=== PATIENT | male | born 1940 | race Caucasian/White ===

== ENCOUNTER 2022-01-19 10:46 | Emergency (ER) | payer OTHER ==
[~2022-01-19] VITALS: Ht 177.8 cm; Wt 90.7 kg
[~2022-01-19 10:46] MED LIST: ASPI-12 PO; CA C1TAB95 PO; ERGO2000 PO; FEXO-263 PO; MULT-1203 PO; OMEG-98 PO; SIMV80TA91 PO; [UNRECOGNIZED DRUG - CODE] PO
[2022-01-19 11:21] LABS: BASOPHILS % (AUTO) 0.6 % (0.0-5.0); EOSINOPHILS % (AUTO) 1.4 % (0.0-8.0); HEMATOCRIT 38.1 % (42-54); LYMPHOCYTES % (AUTO) 35.9 % (21.0-51.0); MEAN CORPUSCULAR HEMOGLOBIN 28.7 pg (27.0-33.0); MEAN CORPUSCULAR HGB CONC 34.9 g/dL (32.0-36.0); MEAN CORPUSCULAR VOLUME 82.1 fL (79-99); MONOCYTES % (AUTO) 7.3 % (3.0-13.0); NEUTROPHILS % (AUTO) 54.5 % (40.0-77.0); PLATELET COUNT (AUTO) 224 K/uL (130-400); RED BLOOD CELL COUNT(AUTO) 4.64 MIL/uL (4.50-6.20); RED CELL DISTRIBUTION WIDTH 13.1 % (11.0-15.5)
[2022-01-19 11:36] LABS: CREATININE 1.6 mg/dL (0.5-1.5); POTASSIUM 3.4 mmol/L (3.5-5.1)
[2022-01-19 11:41] LABS: ALBUMIN 3.7 g/dL (3.5-5.0); BILIRUBIN,TOTAL 0.6 mg/dL (0.2-1.0); TOTAL PROTEIN, SERUM 6.9 g/dL (6.0-8.3)
[2022-01-19 11:43] LABS: B-TYPE NATRIURETIC PEPTIDE 51 pg/mL (0-100)
[2022-01-19] MEDS ORDERED: IOHEXOL 350 MG/ML 100ML INFUS..BTL IV ONE (13:47)
[2022-01-19] MEDS ORDERED: 0.9%NACL 1000ML 1,000 ML IV ONE (14:30)
[2022-01-19 15:16] LABS: APPEARANCE,URINE Clear (CLEAR); BILIRUBIN,URINE Negative (NEGATIVE); COLOR,URINE Yellow (YELLOW); GLUCOSE, URINE (UA) Negative (NEGATIVE); KETONES,URINE Negative (NEGATIVE); LEUKOCYTE ESTERASE ,URINE Negative (NEGATIVE); NITRATE,URINE Negative (NEGATIVE); OCCULT BLOOD,URINE Negative (NEGATIVE); PROTEIN,URINE Negative (NEGATIVE)
[2022-01-19 15:22] LABS: AMPHET/METH SCREEN,URINE NEGATIVE (NEGATIVE); BARBITURATE SCREEN, URINE NEGATIVE (NEGATIVE); BENZODIAZEPINES SCREEN,URINE NEGATIVE (NEGATIVE); CANNABINOID SCREEN,URINE NEGATIVE (NEGATIVE); COCAINE SCREEN,URINE NEGATIVE (NEGATIVE); OPIATE SCREEN,URINE NEGATIVE (NEGATIVE); PHENCYCLIDINE SCREEN,URINE NEGATIVE (NEGATIVE)
[2022-01-19 15:26] LABS: BACTERIA,URINE None Seen /HPF (None Seen); RBC,URINE None Seen /HPF (0-1); SQUAMOUS EPITHELIAL CELL,UR None Seen /HPF (0-2); WBC,URINE None Seen /HPF (0-1)
[2022-01-19 15:32] VITALS: BP 147/47
== END 2022-01-19 16:44 | disposition home or self-care (01) ==
LOC: EDH 10:46
DX: E86.0 Dehydration (principal); R55 Syncope and collapse; G47.00 Insomnia, unspecified; E78.00 Pure hypercholesterolemia, unspecified; I10 Essential (primary) hypertension; Z79.82 Long term (current) use of aspirin; Z79.899 Other long term (current) drug therapy; Z88.0 Allergy status to penicillin
CPT/HCPCS: 36415; 70450; 71270; 80053; 80305; 81001; 83880; 84484; 85025; 85378; 93005; 96360; 99285; J7030; Q9967

== ENCOUNTER → 2022-03-19 | Outpatient (CLI) | payer OTHER | END | disposition home or self-care (01) | LOC: SLP 20:27 | PROVIDERS: ATTEND Family Medicine | DX: G47.33 Obstructive sleep apnea (adult) (pediatric) (principal) | CPT/HCPCS: 95811 ==

== ENCOUNTER 2022-12-13 05:50 | Day surgery (SDC) | payer OTHER ==
[2022-12-11 10:51] LABS: BASOPHILS % (AUTO) 0.5 % (0.0-5.0); EOSINOPHILS % (AUTO) 2.6 % (0.0-8.0); HEMATOCRIT 38.8 % (42-54); LYMPHOCYTES % (AUTO) 39.2 % (21.0-51.0); MEAN CORPUSCULAR HEMOGLOBIN 28.8 pg (27.0-33.0); MEAN CORPUSCULAR HGB CONC 34.8 g/dL (32.0-36.0); MEAN CORPUSCULAR VOLUME 82.7 fL (79-99); MONOCYTES % (AUTO) 8.2 % (3.0-13.0); NEUTROPHILS % (AUTO) 49.2 % (40.0-77.0); PLATELET COUNT (AUTO) 202 K/uL (130-400); RED BLOOD CELL COUNT(AUTO) 4.69 MIL/uL (4.50-6.20); RED CELL DISTRIBUTION WIDTH 12.7 % (11.0-15.5); WHITE BLOOD COUNT (AUTO) 7.7 K/uL (4.8-10.8)
[2022-12-11 11:54] LABS: CREATININE 1.1 mg/dL (0.5-1.5); POTASSIUM 3.9 mmol/L (3.5-5.1)
[2022-12-11 11:55] LABS: PROTHROMBIN TIME 10.9 SEC (9.6-11.6)
[2022-12-11 11:56] LABS: PARTIAL THROMBOPLASTIN TIME 30.7 SEC (26.3-35.5)
[2022-12-13] VITALS (11 sets, daily range): BP systolic 121–157; BP diastolic 56–73
[~2022-12-13 05:50] MED LIST changes: +ATOR40TA71 PO; -CA C1TAB95 PO; +KETO5DRO40 OU; +LOSA1TAB37 PO; +LUTIN PO; -SIMV80TA91 PO; +prevagen PO; +vitamin b PO
[2022-12-13] MEDS ORDERED: LACTATED RINGERS 1000ML 1,000 ML IV ONE (06:27)
[2022-12-13] MEDS ORDERED: SUCCINYLCHOLINE CHLORIDE 20 MG/ML 10 ML VIAL ONE (07:00)
[2022-12-13] MEDS ORDERED: LIDOCAINE PF 100MG/5ML (2%) SYRINGE 5ML ONE (07:00)
[2022-12-13] MEDS ORDERED: DEXAMETHASONE SOD PHOSPHATE 10MG/ML 1ML VIAL ONE (07:00)
[2022-12-13] MEDS ORDERED: MIDAZOLAM HCL 1 MG/ML 2ML VIAL ONE (07:01)
[2022-12-13] MEDS ORDERED: ONDANSETRON 4MG INJ ONE (07:01)
[2022-12-13] MEDS ORDERED: PROPOFOL 10 MG/ML 20ML VIAL IV ONE (07:01)
[2022-12-13] MEDS ORDERED: GLYCOPYRROLATE 1 MG/5 ML SYRINGE ONE (07:01)
[2022-12-13] MEDS ORDERED: FENTANYL CITRATE PF 50 MCG/1 ML 2ML VIAL ONE ×2 (07:01→08:44)
[2022-12-13] MEDS ORDERED: NEOSTIGMINE 5MG/5ML SYR IV ONE (07:01)
[2022-12-13] MEDS ORDERED: ROCURONIUM 10MG/1ML SYR 10 MG/ML ML ONE (07:02)
[2022-12-13] MEDS ORDERED: BACITRACIN 28.4 GM OINT TP ONE (07:11)
[2022-12-13] MEDS ORDERED: LIDOCAINE 1%-EPI 1:100,000 20 ML VIAL IJ ONE ×2 (07:11→08:46)
== END 2022-12-13 10:45 | disposition home or self-care (01) ==
LOC: DAH 05:50
PROVIDERS: ATTEND Otolaryngology Plastic Surgery within the Head & Neck
DX: C43.39 Malignant melanoma of other parts of face (principal); Z20.822 Contact with and (suspected) exposure to COVID-19; I10 Essential (primary) hypertension; E66.9 Obesity, unspecified; Z79.01 Long term (current) use of anticoagulants; Z88.0 Allergy status to penicillin; Z68.31 Body mass index [BMI] 31.0-31.9, adult
CPT/HCPCS: 71045; 87426; 80048; 85025; 85610; 85730; 36415; 93005; 11646; A6260; A4663; J7030; A4606; J7120; J3010 ×2; J3490 ×3; J1100; J2710; J0330; J2001; J2250; J2704; J2405; A4649; A4215; A4223; A4222; A4221

== ENCOUNTER → 2024-06-29 | Outpatient (CLI) | payer OTHER | END | disposition home or self-care (01) | LOC: SHCH 09:55 | PROVIDERS: ATTEND Student in an Organized Health Care Education/Training Program | DX: R55 Syncope and collapse (principal) | CPT/HCPCS: 93306 ==

== ENCOUNTER 2024-07-09 09:15 | Inpatient (IN) | payer OTHER ==
[2024-07-09] VITALS (7 sets, daily range): BP systolic 119–161; BP diastolic 62–69; PULSE 58–66; RESP 16–18; TEMP 98–99; O2SAT 94–98
[~2024-07-09] VITALS: Ht 177.8 cm; Wt 95.4 kg
[2024-07-09] MEDS: 0.9%NACL 1000ML 1,000 ML IV ONE (09:42)
--- NOTE | 2024-07-09 09:43 | ERN ---
General Chief Complaint: Mechanical Fall Stated Complaint: FALL Time Seen by MD: 09:21 History of Present Illness Initial Comments 84-year-old male brought in by for a fall. According to the , the patient banged into a door had a mechanical fall backwards to his bottom. He felt very weak afterwards and was unable to get up. He possibly hit his head. No loss of consciousness. No confusion outside of baseline dementia. Patient reports some right lower back and flank pain. No vomiting. No headache. He has been in his normal state of health otherwise. The reports that he has been having syncopal episodes for the last five years and has been worked up as an outpatient. She does not think he had one today leading to the fall. History: Mild dementia, dyslipidemia, hypertension PCP: Prabhu Weldon Allergies: Coded Allergies: Penicillins (Unverified Allergy, Unknown, 01/19/22) Home Meds Reported Medications [prevagen] No Conflict Check, 1 TAB PO DAILY 12/11/22 [lutin] No Conflict Check, 5 MG PO DAILY 12/11/22 [vitamin b] No Conflict Check, 1 TAB PO DAILY 12/11/22 Ketorolac Tromethamine (Ketorolac Tromethamine) 5 Ml Drops, 1 DROP OU BID, DROP 12/11/22 Losartan/Hydrochlorothiazide (Losartan-Hctz 50-12.5 mg Tab) 1 Each Tablet, 1 EACH PO AM, TAB 12/11/22 Atorvastatin Calcium (Atorvastatin Calcium) 40 Mg Tablet, 40 MG PO DAILY, TAB 12/11/22 Fexofenadine HCl (Fexofenadine HCl) 180 Mg Tablet, 180 MG PO DAILY, TAB 03/16/16 Aspirin/Calcium Carbonate/Mag (Aspirin Buffered 325 mg Tab) 325 Mg Tablet, 325 MG PO DAILY, TAB 03/16/16 [place]-3S/Dha/Epa/Fish Oil (Fish Oil 1,200 mg Softgel) 1 Each Capsule, 1 EACH PO DAILY, CAP 03/16/16 Ascorbic Acid (Vitamin C) 1,000 Mg Tab.chew, 1000 MG PO DAILY, TAB.CHEW 03/16/16 Ergocalciferol (Vitamin D2) (Vitamin D2) 2,000 Unit Tablet, 1000 UNITS PO DAILY, TAB 03/16/16 Multivitamin (Multi Vitamin Daily) 1 Each Tablet, 1 EACH PO DAILY, TAB 03/16/16 Past Medical History Past Medical History: High Cholesterol, Hypertension, Other Medical History Other: MACULA DEGENERATION Past Surgical History: None ROS Dictation CONSTITUTIONAL: No chills, no fever, no weakness, no diaphoresis, no malaise. HEAD/FACE: No signs of trauma. EENT: No eye pain, no blurred vision, no tearing, no double vision, no ear pain, no ear discharge, no nose pain, no nasal congestion, no throat pain, no throat swelling, no mouth pain. RESPIRATORY: No cough, no orthopnea, no SOB, no stridor, no wheezing. CARDIOVASCULAR: No chest pain, no edema, no palpitations, no syncope. GASTROINTESTINAL/ABDOMINAL: No abdominal pain, no constipation, no diarrhea, no nausea, no vomiting. GENITOURINARY: No abnormal discharge, no dysuria, no frequent urination, no hematuria. No complaints of pain in the genitals. MUSCULOSKELETAL: Right lower back pain and flank pain INTEGUMENTARY: No change in color, no change in hair/nails, no dryness, no lesion, no lumps, no rash. NEUROLOGICAL/PSYCH: No anxiety, not depressed, no emotional problem, no headache, no numbness, no pre-existing deficit, no history of seizures, no tremors, no weakness. HEMATOLOGIC/LYMPHATIC: Not anemic, no history of blood clots, no apparent bleeding, no bruising, glands not swollen. All Systems Negative, Except as Noted. Physical Exam Physical Exam Dictation VITAL SIGNS: Reviewed. GENERAL APPEARANCE: Oriented to self, baseline for patient. No acute distress HEAD AND FACE: Non-traumatic. EYES: PERRL, pink conjunctivas, eyelid no trauma, anterior chamber clear. EARS: Pinnas intact and no signs of trauma or erythema. Ear canals clear and no discharge. TMs no erythema. NOSE: No discharge, no bleeding. OROPHARYNX: Mouth normal, teeth no caries, tongue pink. Pharynx clear, no erythema. Tonsils no exudates, no abscesses noted. Mucous membrane moist. NECK: Supple, non-tender, no thyromegaly, no masses, no JVD, no bruits. BREAST: Deferred. CHEST: No tenderness, no crepitus, no paradoxical movement, no retractions. LUNGS: Clear, well-ventilated, symmetric, no rales, no wheezing, no rhonchi, no stridor, good breath sounds bilaterally. HEART: Regular rate, regular rhythm, no murmur, no gallops. VASCULAR: No peripheral edema. ABDOMEN: Soft, positive bowel sounds, nondistended, no guarding, nontender, no rebound, no masses no hepatomegaly, no splenomegaly, no Serrato's sign, no hernias. RECTAL: Deferred. GENITAL: Deferred. NEUROLOGICAL: Normal speech, gross motor function intact, gross sensory funct ion intact. MUSCULOSKELETAL: Neck nontender, full range of motion, back nontender, full range of motion. EXTREMITIES: Nontender, full range of motion. SKIN: Color pink, dry, no turgor, no rash, no lacerations, no abrasions, no contusions. LYMPHATICS: Deferred. Results Laboratory and Microbiology Lab and Micro Result Laboratory Tests Test 07/09/24 09:45 07/09/24 11:05 White Blood Count 12.3 K/uL (4.8-10.8) H Red Blood Count 4.43 MIL/uL (4.50-6.20) L Hemoglobin 12.8 g/dL (14.0-18.0) L Hematocrit 36.8 % (42-54) L Mean Corpuscular Volume 83.1 fL (79-99) Mean Corpuscular Hemoglobin 28.9 pg (27.0-33.0) Mean Corpuscular Hemoglobin Concent 34.8 g/dL (32.0-36.0) Red Cell Distribution Width 12.8 % (11.0-15.5) Platelet Count 254 K/uL (130-400) Mean Platelet Volume 9.7 fL (7.5-10.5) Immature Granulocyte % (Auto) 0.5 % (0-1) Neutrophils (%) (Auto) 75.4 % (40.0-77.0) Lymphocytes (%) (Auto) 17.8 % (21.0-51.0) L Monocytes (%) (Auto) 5.5 % (3.0-13.0) Eosinophils (%) (Auto) 0.5 % (0.0-8.0) Basophils (%) (Auto) 0.3 % (0.0-5.0) Neutrophils # (Auto) 9.3 K/uL (1.8-7.7) H Lymphocytes # (Auto) 2.2 K/uL (1.0-4.8) Monocytes # (Auto) 0.7 K/uL (0.1-1.0) Eosinophils # (Auto) 0.06 K/uL (0.00-0.70) Basophils # (Auto) 0.04 K/uL (0.00-0.20) Absolute Immature Granulocyte (auto 0.06 K/uL (0-1) Nucleated Red Blood Cells 0.0 % (0.0-0.19) Prothrombin Time 11.8 SEC (9.6-11.6) H Prothromb Time International Ratio 1.10 (0.85-1.15) Sodium Level 141 mmol/L (136-145) Potassium Level 3.5 mmol/L (3.5-5.1) Chloride Level 103 mmol/L (101-111) Carbon Dioxide Level 30 mmol/L (21-32) Blood Urea Nitrogen 19 mg/dL (7-18) H Creatinine 1.4 mg/dL (0.5-1.3) H Glomerular Filtration Rate Calc 49 mL/min (>90) Random Glucose 125 mg/dL (70-105) H Total Calcium 9.0 mg/dL (8.5-10.1) Magnesium Level 1.70 mg/dL (1.80-2.40) L Total Bilirubin 0.6 mg/dL (0.2-1.0) Direct Bilirubin 0.1 mg/dL (0.0-0.3) Aspartate Amino Transf (AST/SGOT) 37 U/L (10-37) Alanine Aminotransferase (ALT/SGPT) 37 U/L (12-78) Alkaline Phosphatase 48 U/L (50-136) L Total Creatine Kinase 504 U/L (21-232) *H Troponin I High Sensitivity 12.6 ng/L (4-75) B-Type Natriuretic Peptide 119 pg/mL (0-100) H Total Protein 6.8 g/dL (6.0-8.3) Albumin 3.9 g/dL (3.5-5.0) Lipase 17 U/L (16-77) Urine Color LIGHT-YELLOW (YELLOW) Urine Appearance CLEAR (CLEAR) Urine pH 7.5 (5.0-8.0) Urine Specific [place] 1.014 (1.001-1.031) Urine Protein NEGATIVE mg/dL (NEGATIVE) Urine Glucose (UA) NEGATIVE mg/dL (NEGATIVE) Urine Ketones NEGATIVE mg/dL (NEGATIVE) Urine Occult Blood NEGATIVE (NEGATIVE) Urine Nitrate NEGATIVE (NEGATIVE) Urine Bilirubin NEGATIVE mg/dL (NEGATIVE) Urine Urobilinogen 0.2 mg/dL (0.2-1.0) Urine Leukocyte Esterase NEGATIVE Christo/uL MDM CHICHI CC: syncope & fall Historian: . Patient has dementia. Limitations by social determinates of health: none Comorbidities: advanced age , dementia, dyslipidemia, hypertension,, history of syncopal episodes Ddx: syncope, arrythmia, TBI, brain bleed, multi systems trauma, infection, electrolyte abnormality, etc. Vital signs: Hypertensive 156/66, otherwise stable Clinical exam: He has some right lower back and flank pain. Lung sounds are clear. No obvious injuries. It was baseline mentation GCS 14. EKG (per my independent interpretation): NSR, rate 59, normal axis, good RWP, LVH, no STEMI. CT head (per my independent interpretation): no acute brain bleed CT cervical spine (per my independent interpretation): no acute fracture CXR (per my independent interpretation): no cardiomegaly, no pleural effusion, no focal infiltrate CT abdomen/pelvis w/o contrast (per my independent interpretation): no free air, no obvious surgical abnormalities Labs (ordered & interpreted by me): CBC shows luekocytosis 12.3, no shift or bands. Hg 12.8. Coags stable. BMP shows Cr 1.4, BUN 19. Ck mild elevation 504, possible dehydration. liver enzymes normal, lipase normal. Troponin normal, BNP stable, lipase stable. UA neg. External chart review: labs from 12/11/22 show Cr 1.1. Patient likely has JAMES today based on previous labs. Patient received PO norco for pain, and 1L NS here in ED for dehydration, elevated CK, JAMES. Discussed admission with the family for rehydration and physical therapy. Family agrees. Consultation: hospitalist for admission REASON: fall ORDERING PHYSICIAN: CLARENCE CHACON DO PROCEDURE: C SPIN WO - CT CERVICAL SPINE W/O CONTRAST CT CERVICAL SPINE W/O CONTRAST REASON: fall COMPARISON: None TECHNIQUE: Images are obtained from skull base to the upper thoracic spine in the axial plane. Sagittal and coronal reconstruction images were then performed. FINDINGS: There are normal appearing vertebral bodies. Alignment is unremarkable and disc interspace heights are well preserved. There are moderate degenerative changes in the facets. There is no evidence of fracture or subluxation. Soft tissues appear normal as well. IMPRESSION: 1. Mild cervical degenerative change. 2. No acute finding, no evidence of fracture. CT was performed with one or more following dose reduction techniques: automated exposure control, adjustment of the mA and kv according to patient's size, or use of a iterative reconstruction technique. REASON: fall ORDERING PHYSICIAN: CLARENCE CHACON DO PROCEDURE: HEAD WO - CT HEAD/BRAIN W/O CONTRAST Exam: NONCONTRAST CT BRAIN REASON: fall. COMPARISON: 01/19/2022 TECHNIQUE: Images are obtained from vertex to the skull base. The exam was performed without IV contrast. FINDINGS: There are generous ventricles and sulci. There is decreased attenuation in the deep central white matter. These findings are consistent with atrophy. There are no acute appearing focal parenchymal lesions. There is no evidence of mass, intracranial hemorrhage or acute stroke. Posterior fossa and brainstem structures appear unremarkable. There are no abnormal fluid collections. Extra cranial soft tissues appear unremarkable as well. IMPRESSION: 1. Atrophy, no acute finding. CT was performed with one or more following dose reduction techniques: automated exposure control, adjustment of the mA and kv according to patient's size, or use of a iterative reconstruction technique. REASON: R flank/lower back pain s/p fall ORDERING PHYSICIAN: CLARENCE CHACON DO PROCEDURE: ABD PEL WO - CT ABDOMEN/PELVIS W/O CONTRAST CT ABDOMEN/PELVIS W/O CONTRAST REASON: R flank/lower back pain s/p fall COMPARISON: None. FINDINGS: Lung bases are clear. There are no focal liver lesions. There are normal-appearing kidneys.. Spleen and pancreas appear unremarkable. The gallbladder appears normal as well. There is mild sigmoid diverticulosis without evidence of diverticulitis. Bowel loops appear otherwise unremarkable. This includes normal appearance of the appendix There is no evidence of free fluid or intraperitoneal air. There are no focal fluid collections. Aorta and retroperitoneum appear normal as do pelvic soft tissue structures. The anterior abdominal wall is intact. Osseous structures appear unremarkable. IMPRESSION: 1. No acute finding in the abdomen or pelvis. 2. Mild sigmoid diverticulosis without evidence of diverticulitis. CT was performed with one or more following dose reduction techniques: automated exposure control, adjustment of the mA and kv according to patient's size, or use of a iterative reconstruction technique. REASON: fall ORDERING PHYSICIAN: CLARENCE CHACON DO PROCEDURE: CXR1VW - CHEST 1VW CHEST 1VW REASON: fall COMPARISON: 12/11/2022 FINDINGS: Single view of the chest was obtained. Lungs are clear. Heart size is normal. There is no pulmonary vascular congestion. Mediastinum and bony thorax appear unremarkable. IMPRESSION: 1. Normal single view chest x-ray. ED Course Orders Procedure Category Date Status Time Cardiac Panel LAB 07/09/24 Complete 09:27 Cbc With Differential LAB 07/09/24 Complete 09:27 Basic Metabolic Panel LAB 07/09/24 Complete 09:27 B-Type Natriuretic LAB 07/09/24 Complete Peptide 09:27 Magnesium LAB 07/09/24 Complete 09:27 Prothrombin Time With LAB 07/09/24 Complete INR 09:27 Urinalysis Profile LAB 07/09/24 Complete 09:27 0.9%Nacl 1000ml (Ns PHA 07/09/24 Complete 1000ml) 09:30 12 Lead Ekg Tracing- EKG 07/09/24 Complete Technical 09:27 Ct Head/Brain W/O CT 07/09/24 Resulted Contrast 09:27 Ct Cervical Spine W/O CT 07/09/24 Resulted Contrast 09:27 Chest 1vw RAD 07/09/24 Resulted 09:39 Ct Abdomen/Pelvis W/O CT 07/09/24 Resulted Contrast 09:39 Hepatic Function Panel LAB 07/09/24 Complete 09:48 Lipase LAB 07/09/24 Complete 09:48 Hydrocodone/Apap PHA 07/09/24 In Process 5/325 ([place] 5/325mg) 10:30 Current Medications Medications (Trade) Dose Ordered Sig/Richard Route PRN Reason Start Time Stop Time Status Last Admin Dose Admin Acetaminophen/ Hydrocodone Bitart (NORco 5/325MG) 1 tab ONCE PO 07/09/24 10:30 07/09/24 14:30 07/09/24 10:49 Sodium Chloride 1,000 ml @ 0 mls/hr ONCE ONCE IV 07/09/24 09:30 07/09/24 09:33 DC 07/09/24 09:42 Vital Signs Date Time Temp Pulse Resp B/P (MAP) Pulse Ox O2 Delivery O2 Flow Rate FiO2 07/09/24 11:30 98.1 61 16 140/67 97 Room Air* 0 21 07/09/24 10:35 99.0 59 16 143/63 100 Room Air* 0 21 07/09/24 09:35 99.0 59 16 149/63 98 Room Air* 0 21 07/09/24 09:19 97.7 61 18 156/66 100 Room Air 0 DX & DISP Disposition: Inpatient Departure Impression: Primary Impression: Fall at home Additional Impressions: Hypertension, Weakness, JAMES (acute kidney injury), Dehydration, Elevated CK Condition: Stable Referrals: PRABHU WELDON MD (PCP) CLARENCE CHACON DO Jul 09, 2024 09:43
[2024-07-09 09:54] LABS: BASOPHILS # (AUTO) 0.04 K/uL (0.00-0.20); BASOPHILS % (AUTO) 0.3 % (0.0-5.0); EOSINOPHILS # (AUTO) 0.06 K/uL (0.00-0.70); EOSINOPHILS % (AUTO) 0.5 % (0.0-8.0); HEMATOCRIT 36.8 % (42-54); IMMATURE GRANULOCYTE ABSOLUTE 0.06 K/uL (0-1); LYMPHOCYTES # (AUTO) 2.2 K/uL (1.0-4.8); LYMPHOCYTES % (AUTO) 17.8 % (21.0-51.0); MEAN CORPUSCULAR HEMOGLOBIN 28.9 pg (27.0-33.0); MEAN CORPUSCULAR HGB CONC 34.8 g/dL (32.0-36.0); MEAN CORPUSCULAR VOLUME 83.1 fL (79-99); MONOCYTES # (AUTO) 0.7 K/uL (0.1-1.0); MONOCYTES % (AUTO) 5.5 % (3.0-13.0); NEUTROPHILS # (AUTO) 9.3 K/uL (1.8-7.7); NEUTROPHILS % (AUTO) 75.4 % (40.0-77.0); PLATELET COUNT (AUTO) 254 K/uL (130-400); RED BLOOD CELL COUNT(AUTO) 4.43 MIL/uL (4.50-6.20); RED CELL DISTRIBUTION WIDTH 12.8 % (11.0-15.5); WHITE BLOOD COUNT (AUTO) 12.3 K/uL (4.8-10.8)
[2024-07-09 10:00] LABS: CREATININE 1.4 mg/dL (0.5-1.3); POTASSIUM 3.5 mmol/L (3.5-5.1)
[2024-07-09 10:04] LABS: INR 1.1 (0.85-1.15); PROTHROMBIN TIME 11.8 SEC (9.6-11.6)
[2024-07-09 10:09] LABS: ALBUMIN 3.9 g/dL (3.5-5.0); BILIRUBIN,DIRECT 0.1 mg/dL (0.0-0.3); BILIRUBIN,TOTAL 0.6 mg/dL (0.2-1.0); TOTAL PROTEIN, SERUM 6.8 g/dL (6.0-8.3)
--- NOTE | 2024-07-09 10:09 | EKG ---
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
--- NOTE | 2024-07-09 10:11 | NUR ---
MEDICATION RECONCILED
[2024-07-09 10:14] LABS: MAGNESIUM 1.7 mg/dL (1.80-2.40)
--- NOTE | 2024-07-09 10:18 | HMCIMG ---
Exam: NONCONTRAST CT BRAIN REASON: fall. COMPARISON: 01/19/2022 TECHNIQUE: Images are obtained from vertex to the skull base. The exam was performed without IV contrast. FINDINGS: There are generous ventricles and sulci. There is decreased attenuation in the deep central white matter. These findings are consistent with atrophy. There are no acute appearing focal parenchymal lesions. There is no evidence of mass, intracranial hemorrhage or acute stroke. Posterior fossa and brainstem structures appear unremarkable. There are no abnormal fluid collections. Extra cranial soft tissues appear unremarkable as well. IMPRESSION: 1. Atrophy, no acute finding. CT was performed with one or more following dose reduction techniques: automated exposure control, adjustment of the mA and kv according to patient's size, or use of a iterative reconstruction technique.
[2024-07-09 10:19] LABS: B-TYPE NATRIURETIC PEPTIDE 119 pg/mL (0-100)
--- NOTE | 2024-07-09 10:19 | HMCIMG ---
CT CERVICAL SPINE W/O CONTRAST REASON: fall COMPARISON: None TECHNIQUE: Images are obtained from skull base to the upper thoracic spine in the axial plane. Sagittal and coronal reconstruction images were then performed. FINDINGS: There are normal appearing vertebral bodies. Alignment is unremarkable and disc interspace heights are well preserved. There are moderate degenerative changes in the facets. There is no evidence of fracture or subluxation. Soft tissues appear normal as well. IMPRESSION: 1. Mild cervical degenerative change. 2. No acute finding, no evidence of fracture. CT was performed with one or more following dose reduction techniques: automated exposure control, adjustment of the mA and kv according to patient's size, or use of a iterative reconstruction technique.
--- NOTE | 2024-07-09 10:20 | HMCIMG ---
CT ABDOMEN/PELVIS W/O CONTRAST REASON: R flank/lower back pain s/p fall COMPARISON: None. FINDINGS: Lung bases are clear. There are no focal liver lesions. There are normal-appearing kidneys.. Spleen and pancreas appear unremarkable. The gallbladder appears normal as well. There is mild sigmoid diverticulosis without evidence of diverticulitis. Bowel loops appear otherwise unremarkable. This includes normal appearance of the appendix There is no evidence of free fluid or intraperitoneal air. There are no focal fluid collections. Aorta and retroperitoneum appear normal as do pelvic soft tissue structures. The anterior abdominal wall is intact. Osseous structures appear unremarkable. IMPRESSION: 1. No acute finding in the abdomen or pelvis. 2. Mild sigmoid diverticulosis without evidence of diverticulitis. CT was performed with one or more following dose reduction techniques: automated exposure control, adjustment of the mA and kv according to patient's size, or use of a iterative reconstruction technique.
--- NOTE | 2024-07-09 10:21 | HMCIMG ---
CHEST 1VW REASON: fall COMPARISON: 12/11/2022 FINDINGS: Single view of the chest was obtained. Lungs are clear. Heart size is normal. There is no pulmonary vascular congestion. Mediastinum and bony thorax appear unremarkable. IMPRESSION: 1. Normal single view chest x-ray.
[2024-07-09] MEDS: HYDROcodone/APAP 5/325 1 TAB TABLET PO SCH (10:49)
[2024-07-09 11:20] LABS: APPEARANCE,URINE CLEAR (CLEAR); BILIRUBIN,URINE NEGATIVE (NEGATIVE); COLOR,URINE LIGHT-YELLOW (YELLOW); GLUCOSE, URINE (UA) NEGATIVE (NEGATIVE); KETONES,URINE NEGATIVE (NEGATIVE); LEUKOCYTE ESTERASE ,URINE NEGATIVE Leu/uL (NEGATIVE); NITRATE,URINE NEGATIVE (NEGATIVE); OCCULT BLOOD,URINE NEGATIVE (NEGATIVE); PH,URINE 7.5 (5.0-8.0); PROTEIN,URINE NEGATIVE (NEGATIVE); UROBILINOGEN,URINE 0.2 mg/dL (0.2-1.0)
[2024-07-09 11:32] LABS: ADD UA MICROSCOPIC NO
[2024-07-09] MEDS ORDERED: ARTIFICAL TEARS SOL 15 ML OP PRN (14:00)
[2024-07-09] MEDS ORDERED: LACTULOSE 20 GM/30 ML UDCUP PO PRN (14:00)
[2024-07-09] MEDS ORDERED: LIDOCAINE HCL 2% VISCOUS 30 ML, MAG/ALUM/SIMETH 30ML 30 ML, DICYCLOMINE HCL 20 MG PO PRN (14:00)
[2024-07-09] MEDS ORDERED: polyETHYLene GLYCol 3350 17 GM POWD.PACK PO PRN (14:00)
[2024-07-09] MEDS ORDERED: guaiFENesin-DM 200/20MG 10ML PO PRN (14:00)
[2024-07-09] MEDS ORDERED: guaiFENesin SUGAR-FREE 100 MG/5 ML UDCUP PO PRN (14:00)
[2024-07-09] MEDS ORDERED: ondanSETRON 4MG INJ IV PRN (14:00)
[2024-07-09] MEDS ORDERED: BENZOCAINE/MENTH/CETYLPYRD CL 1 EACH LOZENGE MM PRN (14:00)
[2024-07-09] MEDS ORDERED: DiphenhydrAMINE HCL 50 MG/ML VIAL IV PRN (14:00)
[2024-07-09] MEDS ORDERED: NITROGLYCERIN 0.4 MG SL TAB SL PRN (14:00)
[2024-07-09] MEDS ORDERED: MAG/ALUM/SIMETH 30 ML UDCUP PO PRN (14:00)
[2024-07-09] MEDS ORDERED: LOPERAMIDE HCL 2 MG CAP PO PRN (14:00)
[2024-07-09] MEDS ORDERED: DiphenhydrAMINE HCL 25 MG CAPSULE PO PRN (14:00)
[2024-07-09] MEDS ORDERED: doCUSate SODIUM 100 MG CAP PO PRN (14:00)
[2024-07-09] MEDS ORDERED: acetaMINOPHEN 325 MG TAB PO PRN (14:00)
[2024-07-09] MEDS: MAGNESIUM 2GM PREMIX 50ML 50 ML IV ONE (14:24)
[2024-07-09] MEDS: MAGNESIUM 2GM PREMIX 50ML 50 ML IV PRN (14:25)
[2024-07-09] MEDS: 0.9%NACL 1000ML 1,000 ML IV SCH (14:25)
[2024-07-09] MEDS ORDERED: PoTASSium chloRIDE 20MEQ/100ML 100 ML IV PRN (14:30)
[2024-07-09] MEDS: PoTASSium chl 10% ELIXIR 20MEQ 20 MEQ/15 ML UDCUP PO PRN (14:41)
--- NOTE | 2024-07-09 16:30 | HMCIMG ---
US CAROTID DUPLEX REASON: syncope vs presyncope TECHNIQUE: Exam was performed using spectral analysis and color flow imaging. FINDINGS: Color flow Doppler ultrasound moderate plaque in the right bifurcation and mild plaque on the left. There is elevated flow velocity right proximal internal carotid artery consistent with a 50-70% stenosis. Flow velocities and ratios are normal on the left.. There is antegrade flow in both vertebral arteries. RIGHT CAROTID: CCA: 57 cm/sec ICA: 149 cm/sec Ratio: ICA/CCA: 2.6 ECA: 96 cm/sec Vertebral artery: 42 cm/sec LEFT CAROTID: CCA: 63 cm/sec ICA: 84 cm/sec Ratio: ICA/CCA: 1.3 ECA: 119 cm/sec Vertebral artery: 24 cm/sec IMPRESSION: 1. Moderate plaque right carotid, findings consistent with a 50-70% stenosis. 2. Mild plaque on the left, no evidence of elevated the flow velocities or stenosis.
[2024-07-09] MEDS: INSULIN LISpro 100 UNIT/ML 3ML SQ SCH (18:00)
[2024-07-09] MEDS: ALBUTEROL 0.083% 2.5 MG/3 ML INH IH SCH (19:38)
[2024-07-09] MEDS: FAMOTIDINE 20MG TAB PO SCH (20:55)
[2024-07-09] MEDS: LOSARTAN/HYDROCHLOROTHIAZIDE 50-12.5MG TABLET PO ONE (20:55)
--- NOTE | 2024-07-09 23:01 | HP ---
[facility] HISTORY & PHYSICAL Date Patient Seen: Jul 09, 2024 Time of Visit: 23:01 Supervising Physician: Dr. Morris Haney Primary Care Physician: Dr. Kishor Weldon Outpatient Specialists: Inpatient Consults: PROBLEM LIST: Post mechanical fall Acute renal failure secondary to ATN from dehydration Hypovolemia Rhabdomyolysis Electrolyte imbalance Moderate right carotid artery stenosis, findings consistent with a 50-70% stenosis Leukocytosis without left band shift History dementia, hyperlipidemia, hypertension HPI: Mr. Quintero is a 84-year-old male with history of HTN, dyslipidemia, mild dementia who presented to the ED for evaluation of a fall injury. According to the , the patient banged into a door had a mechanical fall backwards to his bottom. He felt very weak afterwards and was unable to get up. He possibly hit his head. Negative loss of consciousness. No confusion outside of baseline dementia. Patient reported some right lower back and flank pain. No vomiting. No headache. He has been in his normal state of health otherwise. The reported that he has been having syncopal episodes for the last five years and has been worked up as an outpatient. She does not think he had one today leading to the fall. ED provider requested the patient be admitted with the diagnosis of hyperte nsion, weakness, JAMES, dehydration, and elevated CK. The patient's breathing was even, and unlabored. Patient appeared comfortable and in no distress. No family at bedside. The patient reported that he does not really know how the fall happened or what caused the fall. He reports that his could help more with that information. The patient was informed of labs, dignostic and plan of care. PAST MEDICAL HX: see above PAST SURGICAL HX: noncontributory SOCIAL HISTORY: No tobacco, ETOH, or illicit drug use Coded Allergies: Penicillins (Unverified Allergy, Unknown, 01/19/22) REVIEW OF SYSTEMS: 12 point ROS reviewed with patient. Pertinent positives mentioned above. Otherwise negative. PHYSICAL EXAM: GENERAL: alert, weak, awake oriented x 3 HEENT: EOMI, Sclera non icteric, moist mucosa NECK: Supple, no JVD, trachea midline LUNGS: Clear breath sounds bilaterally. No wheezes HEART: Regular rate and rhythm. Normal S1 and S2, without murmurs ABD: Abdomen soft, nontender. Bowel sounds present EXT: No clubbing cyanosis or edema NEURO: Alert and oriented to person, follows commands Vital Signs (last 8hr) Date Time Temp Pulse Resp B/P (MAP) Pulse Ox O2 Delivery O2 Flow Rate FiO2 07/09/24 21:00 98.2 64 18 161/69 95 Room Air 0.0 07/09/24 20:52 69 18 164/71 Room Air* 0 07/09/24 19:49 Room Air* 0 07/09/24 19:38 61 18 N/A Room Air 07/09/24 19:38 61 18 07/09/24 17:37 63 18 N/A Room Air 07/09/24 16:10 99.0 58 17 156/69 96 Room Air 0.0 LABS: Hematology Labs: Test 07/09/24 09:45 Range/Units White Blood Count 12.3 H 4.8-10.8 K/uL Red Blood Count 4.43 L 4.50-6.20 MIL/uL Hemoglobin 12.8 L 14.0-18.0 g/dL Hematocrit 36.8 L 42-54 % Mean Corpuscular Volume 83.1 79-99 fL Mean Corpuscular Hemoglobin 28.9 27.0-33.0 pg Mean Corpuscular Hemoglobin Concent 34.8 32.0-36.0 g/dL Red Cell Distribution Width 12.8 11.0-15.5 % Platelet Count 254 130-400 K/uL Mean Platelet Volume 9.7 7.5-10.5 fL Immature Granulocyte % (Auto) 0.5 0-1 % Neutrophils (%) (Auto) 75.4 40.0-77.0 % Lymphocytes (%) (Auto) 17.8 L 21.0-51.0 % Monocytes (%) (Auto) 5.5 3.0-13.0 % Eosinophils (%) (Auto) 0.5 0.0-8.0 % Basophils (%) (Auto) 0.3 0.0-5.0 % Neutrophils # (Auto) 9.3 H 1.8-7.7 K/uL Lymphocytes # (Auto) 2.2 1.0-4.8 K/uL Monocytes # (Auto) 0.7 0.1-1.0 K/uL Eosinophils # (Auto) 0.06 0.00-0.70 K/uL Basophils # (Auto) 0.04 0.00-0.20 K/uL Absolute Immature Granulocyte (auto 0.06 0-1 K/uL Nucleated Red Blood Cells 0.0 0.0-0.19 % Chemistry Labs: Test 07/09/24 16:08 07/09/24 09:45 Range/Units Whole Blood Glucose 111 H 70-110 MG/DL Sodium Level 141 136-145 mmol/L Potassium Level 3.5 3.5-5.1 mmol/L Chloride Level 103 101-111 mmol/L Carbon Dioxide Level 30 21-32 mmol/L Blood Urea Nitrogen 19 H 7-18 mg/dL Creatinine 1.4 H 0.5-1.3 mg/dL Glomerular Filtration Rate Calc 49 >90 mL/min Random Glucose 125 H 70-105 mg/dL Total Calcium 9.0 8.5-10.1 mg/dL Magnesium Level 1.70 L 1.80-2.40 mg/dL Total Bilirubin 0.6 0.2-1.0 mg/dL Direct Bilirubin 0.1 0.0-0.3 mg/dL Aspartate Amino Transf (AST/SGOT) 37 10-37 U/L Alanine Aminotransferase (ALT/SGPT) 37 12-78 U/L Alkaline Phosphatase 48 L 50-136 U/L Total Creatine Kinase 504 *H 21-232 U/L Troponin I High Sensitivity 12.6 4-75 ng/L B-Type Natriuretic Peptide 119 H 0-100 pg/mL Total Protein 6.8 6.0-8.3 g/dL Albumin 3.9 3.5-5.0 g/dL Lipase 17 16-77 U/L Coagulation Labs: Test 07/09/24 09:45 Range/Units Prothrombin Time 11.8 H 9.6-11.6 SEC Prothromb Time International Ratio 1.10 0.85-1.15 DIAGNOSTICS / RADIOLOGY RESULTS: [ ] PLAN Admit to medical floor with continuous telemetry monitoring. -Troponin levels and EKG series. -Carotid and 2D echo. -PRN medications for pain management, N/V, constipation, hypertension. -Oxygen supplement as needed to maintain oxygen levels equal to or greater than 92% -Nitroglycerin sublingual as needed chest pain -Atorvastatin 40 mg PO daily. -Blood pressure checks every 4 hours and as needed. -Reconcile home medications once available. -Glucometer checks before meals and at bedtime with insulin regular sliding scale. -Monitor renal and liver function, monitor electrolytes and replace PRN. -AM labs: CBC, BMP, mag, phos, A1C, TSH. -PT/OT -DVT and GI prophylaxis. NEURO: Minimize central acting medications as possible. Maintain fall precautions, adequate lighting during the day PULMONARY: Supplemental 02 as needed. Maintain aspiration precautions at all times CARDIOVASCULAR: Follow hemodynamics. Vital signs per facility protocol GI & NUTRITION: Continue with nutritional support. Continue stool softeners and laxatives as needed. KIDNEYS & ELECTROLYTES: Strict monitoring of intake, output and overall fluid balance. Avoid nephrotoxic medications to the extent possible. Medications to be dosed according to renal function. Monitor electrolytes and replace as needed ENDOCRINE: Maintain blood glucose between 100-180 at all times. Hypoglycemia protocol in place INFECTIOUS DISEASE: Trend temperature, WBC and procalcitonin level Follow cultures, deescalate antibiotics as soon as possible. Panculture if new onset fever ONCOLOGY/HEMATOLOGY/COAGULATION: Monitor for s/s of bleeding Monitor hemoglobin, coagulation studies as needed SKIN: Pressure ulcer prevention per facility protocol Specialty mattress ORTHO/REHAB: Continue PT/OT Prophylaxis: Continue GI and DVT prophylaxis Code Status: Full Resuscitation Disposition: VIRGINIA CARRERO ORAL PATHOLOGIST Jul 09, 2024 23:01
[2024-07-10] VITALS (18 sets, daily range): BP systolic 109–187; BP diastolic 56–73; PULSE 56–76; RESP 16–18; TEMP 97.2–98.7; O2SAT 94–98
[2024-07-10] MEDS: cloNIDine HCL 0.2 MG TABLET PO ONE (00:14)
[2024-07-10] MEDS ORDERED: ARTIFICAL TEARS SOL 15 ML OP PRN (06:30)
[2024-07-10] MEDS: MULTIVITAMIN TABLET PO SCH (08:21)
[2024-07-10] MEDS: MAG PO SCH (08:21)
[2024-07-10] MEDS: ceTIRIzine HCL 5 MG TABLET PO SCH (08:21)
[2024-07-10] MEDS: ASPIRIN PO SCH (08:21)
[2024-07-10] MEDS: atorVAStatin 40 MG TABLET PO SCH (08:21)
[2024-07-10] MEDS: CALCIUM CARBONATE PO SCH (08:21)
[2024-07-10] MEDS: LOSARTAN/HYDROCHLOROTHIAZIDE 50-12.5MG TABLET PO SCH (08:24)
--- NOTE | 2024-07-10 08:32 | PN ---
[facility] PROGRESS NOTE Date Patient Seen: Jul 10, 2024 Time of Visit: 08:30 Supervising Physician: Dr. Haney Primary Care Physician: Dr. Kishor Weldon Outpatient Specialists: NA Inpatient Consults: NA PROBLEM LIST: Post mechanical fall Acute renal failure secondary to ATN from dehydration Hypovolemia Rhabdomyolysis Electrolyte imbalance Moderate right carotid artery stenosis Leukocytosis without left band shift History dementia, hyperlipidemia, hypertension INTERVAL HISTORY: Patient came to the hospital with status post mechanical fall backward hitting his bottom without any injury. Patient has been very weak reporting pain in the back. At this time, patient is awake alert oriented x1-2, no acute event overnight. Vital signs blood pressure 150/72 heart rate is 66. Respiratory rate 16. Her T-max 98.8. He is breathing on room air with saturation oxygen 93%. No lab this morning, we will obtain CBC BMP CK TSH. Patient had imaging studies with carotids also on moderate plaque in the right carotid artery 50 to 70%. Continue with IV fluids. We will obtain physical therapy to evaluate and case management for placement. REVIEW OF SYSTEMS: 12 point ROS reviewed with patient. Pertinent positives mentioned above. Otherwise negative. PHYSICAL EXAM: GENERAL: alert, weak, awake oriented x 1-2 HEENT: EOMI, Sclera non icteric, moist mucosa NECK: Supple, no JVD, trachea midline LUNGS: Clear breath sounds bilaterally. No wheezes HEART: Regular rate and rhythm. Normal S1 and S2, without murmurs ABD: Abdomen soft, nontender. Bowel sounds present EXT: No clubbing cyanosis or edema NEURO: Alert and oriented to person, follows commands Vital Signs (last 8hr) Date Time Temp Pulse Resp B/P (MAP) Pulse Ox O2 Delivery O2 Flow Rate FiO2 07/10/24 07:51 97.2 66 16 153/72 93 Room Air 07/10/24 07:00 63 18 07/10/24 07:00 63 18 N/A Room Air 07/10/24 04:16 98.2 56 18 127/71 94 Room Air 07/10/24 03:50 96 Room Air* 0 07/10/24 01:55 18 167/67 0.0 LABS: Hematology Labs: Test 07/09/24 09:45 Range/Units White Blood Count 12.3 H 4.8-10.8 K/uL Red Blood Count 4.43 L 4.50-6.20 MIL/uL Hemoglobin 12.8 L 14.0-18.0 g/dL Hematocrit 36.8 L 42-54 % Mean Corpuscular Volume 83.1 79-99 fL Mean Corpuscular Hemoglobin 28.9 27.0-33.0 pg Mean Corpuscular Hemoglobin Concent 34.8 32.0-36.0 g/dL Red Cell Distribution Width 12.8 11.0-15.5 % Platelet Count 254 130-400 K/uL Mean Platelet Volume 9.7 7.5-10.5 fL Immature Granulocyte % (Auto) 0.5 0-1 % Neutrophils (%) (Auto) 75.4 40.0-77.0 % Lymphocytes (%) (Auto) 17.8 L 21.0-51.0 % Monocytes (%) (Auto) 5.5 3.0-13.0 % Eosinophils (%) (Auto) 0.5 0.0-8.0 % Basophils (%) (Auto) 0.3 0.0-5.0 % Neutrophils # (Auto) 9.3 H 1.8-7.7 K/uL Lymphocytes # (Auto) 2.2 1.0-4.8 K/uL Monocytes # (Auto) 0.7 0.1-1.0 K/uL Eosinophils # (Auto) 0.06 0.00-0.70 K/uL Basophils # (Auto) 0.04 0.00-0.20 K/uL Absolute Immature Granulocyte (auto 0.06 0-1 K/uL Nucleated Red Blood Cells 0.0 0.0-0.19 % Chemistry Labs: Test 07/10/24 05:38 07/09/24 09:45 Range/Units Whole Blood Glucose 105 70-110 MG/DL Sodium Level 141 136-145 mmol/L Potassium Level 3.5 3.5-5.1 mmol/L Chloride Level 103 101-111 mmol/L Carbon Dioxide Level 30 21-32 mmol/L Blood Urea Nitrogen 19 H 7-18 mg/dL Creatinine 1.4 H 0.5-1.3 mg/dL Glomerular Filtration Rate Calc 49 >90 mL/min Random Glucose 125 H 70-105 mg/dL Total Calcium 9.0 8.5-10.1 mg/dL Magnesium Level 1.70 L 1.80-2.40 mg/dL Total Bilirubin 0.6 0.2-1.0 mg/dL Direct Bilirubin 0.1 0.0-0.3 mg/dL Aspartate Amino Transf (AST/SGOT) 37 10-37 U/L Alanine Aminotransferase (ALT/SGPT) 37 12-78 U/L Alkaline Phosphatase 48 L 50-136 U/L Total Creatine Kinase 504 *H 21-232 U/L Troponin I High Sensitivity 12.6 4-75 ng/L B-Type Natriuretic Peptide 119 H 0-100 pg/mL Total Protein 6.8 6.0-8.3 g/dL Albumin 3.9 3.5-5.0 g/dL Lipase 17 16-77 U/L Coagulation Labs: Test 07/09/24 09:45 Range/Units Prothrombin Time 11.8 H 9.6-11.6 SEC Prothromb Time International Ratio 1.10 0.85-1.15 DIAGNOSTICS / RADIOLOGY RESULTS: [ ] PLAN NEURO: Minimize central acting medications as possible. Maintain fall precautions, adequate lighting during the day PULMONARY: Supplemental 02 as needed. Maintain aspiration precautions at all times CARDIOVASCULAR: Follow hemodynamics. Vital signs per facility protocol GI & NUTRITION: Continue with nutritional support. Continue stool softeners and laxatives as needed. KIDNEYS & ELECTROLYTES: Strict monitoring of intake, output and overall fluid balance. Avoid nephrotoxic medications to the extent possible. Medications to be dosed according to renal function. Monitor electrolytes and replace as needed IVF ENDOCRINE: Maintain blood glucose between 100-180 at all times. Hypoglycemia protocol in place INFECTIOUS DISEASE: Trend temperature, WBC and procalcitonin level Follow cultures, deescalate antibiotics as soon as possible. Panculture if new onset fever ONCOLOGY/HEMATOLOGY/COAGULATION: Monitor for s/s of bleeding Monitor hemoglobin, coagulation studies as needed SKIN: Pressure ulcer prevention per facility protocol Specialty mattress ORTHO/REHAB: Continue PT/OT Prophylaxis: Continue GI and DVT prophylaxis Code Status: Full Resuscitation Disposition: TBD Other: Total patient care time exceeds 35 minutes excluding all procedures. LISAFARIDAPILARCASSIDY RESIDENCY PROGRAM COORDINATOR Jul 10, 2024 08:32
[2024-07-10 09:39] LABS: BASOPHILS # (AUTO) 0.04 K/uL (0.00-0.20); BASOPHILS % (AUTO) 0.6 % (0.0-5.0); EOSINOPHILS # (AUTO) 0.03 K/uL (0.00-0.70); EOSINOPHILS % (AUTO) 0.5 % (0.0-8.0); HEMATOCRIT 31.2 % (42-54); IMMATURE GRANULOCYTE ABSOLUTE 0.02 K/uL (0-1); LYMPHOCYTES # (AUTO) 1.5 K/uL (1.0-4.8); LYMPHOCYTES % (AUTO) 22.5 % (21.0-51.0); MEAN CORPUSCULAR HGB CONC 35.6 g/dL (32.0-36.0); MEAN CORPUSCULAR VOLUME 84.3 fL (79-99); MONOCYTES # (AUTO) 0.5 K/uL (0.1-1.0); MONOCYTES % (AUTO) 8.4 % (3.0-13.0); NEUTROPHILS # (AUTO) 4.4 K/uL (1.8-7.7); NEUTROPHILS % (AUTO) 67.7 % (40.0-77.0); PLATELET COUNT (AUTO) 203 K/uL (130-400); RED CELL DISTRIBUTION WIDTH 12.8 % (11.0-15.5); WHITE BLOOD COUNT (AUTO) 6.4 K/uL (4.8-10.8)
[2024-07-10 10:10] LABS: CREATININE 1.5 mg/dL (0.5-1.3); POTASSIUM 3.4 mmol/L (3.5-5.1); THYROID STIMULATING HORMONE 1.25 uIU/mL (0.36-3.74)
[2024-07-10] MEDS: LACTATED RINGERS IV ONE (10:38)
[2024-07-10] MEDS: INSULIN humuLIN R 100 UNIT/ML 3ML SQ SCH (16:20)
--- NOTE | 2024-07-10 18:14 | NUR ---
D/C PLAN CM spoke to patient and spouse regarding d/c planning. Patient lives with spouse. Reports he is independent with ADL's. Denies having any home services or DME. States fall was accidental and does not need rehab. Plan for now is to return home. CM to f/u. Addendum: 07/10/24 at 1818 by EDDIE CARTER CM Amended: Links added.
[2024-07-10] MEDS: FAMOTIDINE 20MG TAB PO SCH (19:55)
[2024-07-11] VITALS (19 sets, daily range): BP systolic 131–187; BP diastolic 61–83; PULSE 60–87; RESP 17–20; TEMP 97.9–99.6; O2SAT 93–98
--- NOTE | 2024-07-11 00:28 | HMCSR ---
APPROVED REPORT EXAM: Two-dimensional and M-mode echocardiogram with Doppler and color Doppler. Study Details: Hx: HTN, dyslipidemia, mild dementia INDICATION ICD: Syncope vs presyncope 2D Dimensions RVDd3.6 cmLVEF(%)59.0 (>50%)LVED Vol(simp.)77.6 mL IVSd1.0 (0.7-1.1cm)FS(%)31 %LVES Vol(simp.)24.8 mL LVDd3.9 (3.8-5.6cm)LA (2D)4.1 (1.6-4.0cm)LVEF(%, simp.)68 % PWd1.2 (0.7-1.1cm)Ao Root(2D)3.5 (2.0-3.7cm)LA ESV INDEX (4CH)30.10 mL/m2 IVSs1.6 cmLA ESV INDEX (2CH)22.00 mL/m2 LVDs2.7 (2.5-4.0cm)LA ESV INDEX (BP)25.10 mL/m2 PWs0.9 cm Deformation Strain Apical 425.0 % Apical 230.0 % Apical 330.0 % Global Ihcsgu59.0 % M-Mode Dimensions EPSS0.4 cm LA (MM)4.3 (1.6-4.0cm) Ao Root(MM)3.8 (2.0-3.7cm) Aortic Valve AoV VTI0.4 mAo Mean GR7.0 mmHgLVOT VTI0.31 m Mitral Valve MV E Vmax88.3 cm/sDECEL Txfu697 ms MV A Lpkl821.8 cm/sP 1/2 T90 ms E/A ratio0.9MVA (PHT)2.5 cm2 MR Max PG36 mmHg TDI E/E' Zulxgv37.5E/E' Htjyabl63.7 Medial E' Peak V6.10 cm/sLateral E' Peak V5.30 cm/s Pulmonary Valve PV VTI0.28 mPV Mean GR3 mmHg Tricuspid Valve TR Vmax3.2 m/s TR Peak GR42.1 mmHg Left Ventricle The left ventricle is normal in size. No regional wall motion abnormalities noted. Mild concentric le ft ventricular hypertrophy. Left ventricular systolic function is normal, estimated LVEF 60-65%. Stag e I diastolic dysfunction. Right Ventricle The right ventricle is normal size. The right ventricular systolic function is normal. Atria The left atrium size is normal. The right atrium size is normal. Aortic Valve Aortic valve is trileaflet. The leaflets are mildly thickened and calcified. Trace aortic regurgitati on. There is no aortic valvular stenosis. Mitral Valve Mild mitral annular calcification is noted. The leaflets are mildly thickened and calcified. Trace mi tral regurgitation. There is no mitral valve stenosis. Tricuspid Valve The tricuspid valve is normal in structure and function. Moderate tricuspid regurgitation. RVSP is 42 mmHg. Pulmonic Valve Pulmonic valve is not well visualized. Great Vessels The aortic root is normal in size. The ascending aorta is mildly dilated and measures 3.7 cm. The IVC is normal in size and collapses >50% with inspiration. Pericardium No pericardial effusion. Other Information Quality : Good Conclusion The cardiac chambers are normal in size. Mild concentric left ventricular hypertrophy. No regional wall motion abnormalities noted. Left ventricular systolic function is normal, estimated LVEF 60-65%. Stage I diastolic dysfunction. Trace aortic regurgitation. Trace mitral regurgitation. Moderate tricuspid regurgitation. PASP is 45 mmHg. No pericardial effusion.
[2024-07-11 04:04] LABS: BASOPHILS # (AUTO) 0.05 K/uL (0.00-0.20); BASOPHILS % (AUTO) 0.7 % (0.0-5.0); EOSINOPHILS % (AUTO) 1.3 % (0.0-8.0); HEMATOCRIT 31.1 % (42-54); IMMATURE GRANULOCYTE ABSOLUTE 0.02 K/uL (0-1); LYMPHOCYTES # (AUTO) 2.1 K/uL (1.0-4.8); LYMPHOCYTES % (AUTO) 27.7 % (21.0-51.0); MEAN CORPUSCULAR HEMOGLOBIN 29.4 pg (27.0-33.0); MEAN CORPUSCULAR VOLUME 83.8 fL (79-99); MONOCYTES # (AUTO) 0.7 K/uL (0.1-1.0); MONOCYTES % (AUTO) 9.1 % (3.0-13.0); NEUTROPHILS # (AUTO) 4.7 K/uL (1.8-7.7); NEUTROPHILS % (AUTO) 60.9 % (40.0-77.0); PLATELET COUNT (AUTO) 204 K/uL (130-400); RED BLOOD CELL COUNT(AUTO) 3.71 MIL/uL (4.50-6.20); RED CELL DISTRIBUTION WIDTH 12.9 % (11.0-15.5); WHITE BLOOD COUNT (AUTO) 7.6 K/uL (4.8-10.8)
[2024-07-11 04:17] LABS: CREATININE 1.3 mg/dL (0.5-1.3); MAGNESIUM 1.8 mg/dL (1.80-2.40); POTASSIUM 3.5 mmol/L (3.5-5.1)
[2024-07-11 08:42] LABS: SARS-CoV-2, RNA, NAAT NEGATIVE SARS CoV-2 (NEGATIVE)
--- NOTE | 2024-07-11 09:00 | DS ---
[facility] DISCHARGE SUMMARY Date Patient Seen: Jul 11, 2024 Time of Visit: 09:00 Supervising Physician: [ ] Primary Care Physician: Dr. Kishor Weldon Outpatient Specialists: Inpatient Consults: PROBLEM LIST: Post mechanical fall Acute renal failure secondary to ATN from dehydration Hypovolemia Rhabdomyolysis Electrolyte imbalance Moderate right carotid artery stenosis, findings consistent with a 50-70% stenosis Leukocytosis without left band shift History dementia, hyperlipidemia, hypertension HOSPITAL COURSE: HPI (per admitting provider) The patient was treated for the following problems: ACTIVE PROBLEM LIST FOR THE HOSPITALIZATION: CHRONIC PROBLEMS: continue previous management per PCP unless otherwise indicated CALL CENTER RECEPTIONIST FINDINGS/RECOMMENDATIONS: [ ] PROCEDURES: as mentioned above DISCHARGE MEDICATIONS: Pt hemodynamically stable and afebrile at time of discharge. PCP notified of patients admission, hospital course and discharge. PHYSICAL EXAM: GENERAL: alert, weak, awake oriented x 1-2 HEENT: EOMI, Sclera non icteric, moist mucosa NECK: Supple, no JVD, trachea midline LUNGS: Clear breath sounds bilaterally. No wheezes HEART: Regular rate and rhythm. Normal S1 and S2, without murmurs ABD: Abdomen soft, nontender. Bowel sounds present EXT: No clubbing cyanosis or edema NEURO: Alert and oriented to person, follows commands FOLLOW-UP: Follow-up with PCP in 2-3 days RECOMMENDATIONS: See Discharge Instructions This case was seen and discussed with my supervising physician. More than 30 minutes spent on discharge process, including evaluation of the patient, discussion with nursing staff, medication reconciliation and follow-up appointments ASHLEY DURAN CNP Jul 11, 2024 09:00
[2024-07-11 09:40] LABS: INFLUENZA TYPE A Negative For Type A (NEGATIVE); INFLUENZA TYPE B Negative For Type B (NEGATIVE)
[2024-07-11] MEDS: LACTATED RINGERS 1000ML IV ONE (09:42)
--- NOTE | 2024-07-11 14:43 | PN ---
[facility] PROGRESS NOTE Date Patient Seen: Jul 11, 2024 Time of Visit: 14:41 Supervising Physician: Dr. Doll Primary Care Physician: Dr. Kishor Weldon Outpatient Specialists: Inpatient Consults: PROBLEM LIST: Post mechanical fall Acute renal failure secondary to ATN from dehydration Hypovolemia Rhabdomyolysis Electrolyte imbalance Moderate right carotid artery stenosis, findings consistent with a 50-70% stenosis Leukocytosis without left band shift History dementia, hyperlipidemia, hypertension INTERVAL HISTORY: Patient came to the hospital with status post mechanical fall backward hitting his bottom without any injury. Patient has been very weak reporting pain in the back. At this time, patient is awake alert oriented x1-2, no acute event overnight. Vital signs blood pressure 150/72 heart rate is 66. Respiratory rate 16. Her T-max 98.8. He is breathing on room air with saturation oxygen 93%. No lab this morning, we will obtain CBC BMP CK TSH. Patient had imaging studies with carotids also on moderate plaque in the right carotid artery 50 to 70%. Continue with IV fluids. We will obtain physical therapy to evaluate and case management for placement. 07/11 patient is lying in bed not in acute distress, no acute event overnight. Blood pressure is 160/83 heart rate is 72. Respiratory rate is 18. T-max 98.4. He remains on room air saturation oxygen 96%. We will repeat is CK this morning, eight went up to 950 from 500 although his kidney function has been normalized at 1.3 down from 1.5. We will give him extra dose of fluid and repeat lab in the afternoon. Patient pending discharge when rhabdomyolysis has improved. REVIEW OF SYSTEMS: 12 point ROS reviewed with patient. Pertinent positives mentioned above. Otherwise negative. PHYSICAL EXAM: GENERAL: alert, weak, awake oriented x 1-2 HEENT: EOMI, Sclera non icteric, moist mucosa NECK: Supple, no JVD, trachea midline LUNGS: Clear breath sounds bilaterally. No wheezes HEART: Regular rate and rhythm. Normal S1 and S2, without murmurs ABD: Abdomen soft, nontender. Bowel sounds present EXT: No clubbing cyanosis or edema NEURO: Alert and oriented to person, follows commands Vital Signs (last 8hr) Date Time Temp Pulse Resp B/P (MAP) Pulse Ox O2 Delivery O2 Flow Rate FiO2 07/11/24 11:54 97.9 72 18 163/83 96 Room Air 07/11/24 11:28 68 18 N/A Room Air 21 07/11/24 11:26 68 18 07/11/24 07:41 98.4 66 18 157/81 92 Room Air 07/11/24 07:32 98 Room Air* 0 21 LABS: Hematology Labs: Test 07/11/24 03:52 Range/Units White Blood Count 7.6 4.8-10.8 K/uL Red Blood Count 3.71 L 4.50-6.20 MIL/uL Hemoglobin 10.9 L 14.0-18.0 g/dL Hematocrit 31.1 L 42-54 % Mean Corpuscular Volume 83.8 79-99 fL Mean Corpuscular Hemoglobin 29.4 27.0-33.0 pg Mean Corpuscular Hemoglobin Concent 35.0 32.0-36.0 g/dL Red Cell Distribution Width 12.9 11.0-15.5 % Platelet Count 204 130-400 K/uL Mean Platelet Volume 9.5 7.5-10.5 fL Immature Granulocyte % (Auto) 0.3 0-1 % Neutrophils (%) (Auto) 60.9 40.0-77.0 % Lymphocytes (%) (Auto) 27.7 21.0-51.0 % Monocytes (%) (Auto) 9.1 3.0-13.0 % Eosinophils (%) (Auto) 1.3 0.0-8.0 % Basophils (%) (Auto) 0.7 0.0-5.0 % Neutrophils # (Auto) 4.7 1.8-7.7 K/uL Lymphocytes # (Auto) 2.1 1.0-4.8 K/uL Monocytes # (Auto) 0.7 0.1-1.0 K/uL Eosinophils # (Auto) 0.10 0.00-0.70 K/uL Basophils # (Auto) 0.05 0.00-0.20 K/uL Absolute Immature Granulocyte (auto 0.02 0-1 K/uL Nucleated Red Blood Cells 0.0 0.0-0.19 % Chemistry Labs: Test 07/11/24 11:58 07/11/24 03:52 07/10/24 09:32 Range/Units Whole Blood Glucose 99 70-110 MG/DL Sodium Level 143 136-145 mmol/L Potassium Level 3.5 3.5-5.1 mmol/L Chloride Level 109 101-111 mmol/L Carbon Dioxide Level 24 21-32 mmol/L Blood Urea Nitrogen 13 7-18 mg/dL Creatinine 1.3 0.5-1.3 mg/dL Glomerular Filtration Rate Calc 54 >90 mL/min Random Glucose 111 H 70-105 mg/dL Total Calcium 8.3 L 8.5-10.1 mg/dL Magnesium Level 1.80 1.80-2.40 mg/dL Total Creatine Kinase 959 #*H 21-232 U/L Thyroid Stimulating Hormone (TSH) 1.25 0.36-3.74 uIU/mL DIAGNOSTICS / RADIOLOGY RESULTS: [ ] PLAN Admit to medical floor with continuous telemetry monitoring. -Troponin levels and EKG series. -Carotid and 2D echo. -PRN medications for pain management, N/V, constipation, hypertension. -Oxygen supplement as needed to maintain oxygen levels equal to or greater than 92% -Nitroglycerin sublingual as needed chest pain -Atorvastatin 40 mg PO daily. -Blood pressure checks every 4 hours and as needed. -Reconcile home medications once available. -Glucometer checks before meals and at bedtime with insulin regular sliding scale. -Monitor renal and liver function, monitor electrolytes and replace PRN. -AM labs: CBC, BMP, mag, phos, A1C, TSH. -PT/OT -DVT and GI prophylaxis. NEURO: Minimize central acting medications as possible. Maintain fall precautions, adequate lighting during the day PULMONARY: Supplemental 02 as needed. Maintain aspiration precautions at all times CARDIOVASCULAR: Follow hemodynamics. Vital signs per facility protocol GI & NUTRITION: Continue with nutritional support. Continue stool softeners and laxatives as needed. KIDNEYS & ELECTROLYTES: Strict monitoring of intake, output and overall fluid balance. Avoid nephrotoxic medications to the extent possible. Medications to be dosed according to renal function. Monitor electrolytes and replace as needed ENDOCRINE: Maintain blood glucose between 100-180 at all times. Hypoglycemia protocol in place INFECTIOUS DISEASE: Trend temperature, WBC and procalcitonin level Follow cultures, deescalate antibiotics as soon as possible. Panculture if new onset fever ONCOLOGY/HEMATOLOGY/COAGULATION: Monitor for s/s of bleeding Monitor hemoglobin, coagulation studies as needed SKIN: Pressure ulcer prevention per facility protocol Specialty mattress ORTHO/REHAB: Continue PT/OT Prophylaxis: Continue GI and DVT prophylaxis Code Status: Full Resuscitation Disposition: ASHLEY RAND FIRMWARE MANAGER Jul 11, 2024 14:43
[2024-07-11 16:54] LABS: CREATININE 1.3 mg/dL (0.5-1.3); POTASSIUM 3.4 mmol/L (3.5-5.1)
[2024-07-11] MEDS: hydrALAZine 20MG/ML VIAL IV PRN (22:14)
[2024-07-12] VITALS (15 sets, daily range): BP systolic 152–194; BP diastolic 72–88; PULSE 65–79; RESP 18–20; TEMP 97.9–98.4; O2SAT 93–98
[2024-07-12 04:12] LABS: BASOPHILS # (AUTO) 0.04 K/uL (0.00-0.20); BASOPHILS % (AUTO) 0.5 % (0.0-5.0); EOSINOPHILS % (AUTO) 1.2 % (0.0-8.0); IMMATURE GRANULOCYTE ABSOLUTE 0.03 K/uL (0-1); LYMPHOCYTES # (AUTO) 1.7 K/uL (1.0-4.8); MEAN CORPUSCULAR HGB CONC 33.9 g/dL (32.0-36.0); MEAN CORPUSCULAR VOLUME 85.5 fL (79-99); MONOCYTES # (AUTO) 0.8 K/uL (0.1-1.0); MONOCYTES % (AUTO) 9.6 % (3.0-13.0); NEUTROPHILS # (AUTO) 5.4 K/uL (1.8-7.7); NEUTROPHILS % (AUTO) 67.3 % (40.0-77.0); PLATELET COUNT (AUTO) 220 K/uL (130-400); RED BLOOD CELL COUNT(AUTO) 3.86 MIL/uL (4.50-6.20); RED CELL DISTRIBUTION WIDTH 13.1 % (11.0-15.5); WHITE BLOOD COUNT (AUTO) 8.1 K/uL (4.8-10.8)
[2024-07-12 04:34] LABS: CREATININE 1.2 mg/dL (0.5-1.3); POTASSIUM 3.3 mmol/L (3.5-5.1)
[2024-07-12] MEDS: acetaMINOPHEN 325 MG TAB PO PRN (05:41)
[2024-07-12] MEDS: 0.9% NACL 500ML IV.SOLN 500 ML IV ONE (06:16)
[2024-07-12] MEDS: LACTATED RINGERS 1000ML IV SCH (08:21)
--- NOTE | 2024-07-12 08:27 | PN ---
[facility] PROGRESS NOTE Date Patient Seen: Jul 12, 2024 Time of Visit: 08:25 Supervising Physician: Dr. Doll Primary Care Physician: Dr. Kishor Weldon Outpatient Specialists: Inpatient Consults: NA PROBLEM LIST: Post mechanical fall Rhabdomyolysis- recurrent- likely iatrogenic from hydrochlorothiazide Acute renal failure secondary to ATN from dehydration Hypovolemia Electrolyte imbalance Primary hypertension Moderate right carotid artery stenosis, findings consistent with a 50-70% stenosis Leukocytosis without left band shift History dementia, hyperlipidemia, hypertension INTERVAL HISTORY: Patient came to the hospital with status post mechanical fall backward hitting his bottom without any injury. Patient has been very weak reporting pain in the back. At this time, patient is awake alert oriented x1-2, no acute event overnight. Vital signs blood pressure 150/72 heart rate is 66. Respiratory rate 16. Her T-max 98.8. He is breathing on room air with saturation oxygen 93%. No lab this morning, we will obtain CBC BMP CK TSH. Patient had imaging studies with carotids also on moderate plaque in the right carotid artery 50 to 70%. Continue with IV fluids. We will obtain physical therapy to evaluate and case management for placement. 07/11 patient is lying in bed not in acute distress, no acute event overnight. Blood pressure is 160/83 heart rate is 72. Respiratory rate is 18. T-max 98.4. He remains on room air saturation oxygen 96%. We will repeat is CK this morning, eight went up to 950 from 500 although his kidney function has been normalized at 1.3 down from 1.5. We will give him extra dose of fluid and repeat lab in the afternoon. Patient pending discharge when rhabdomyolysis has improved. 07/12 patient is lying down in bed not in acute distress having his breakfast, no acute events overnight. Blood pressure this morning was 170/77, losartan/ hydrochlorothiazide has been held yesterday secondary to persistent rhabdomyolysis. His CK this morning remains high at 990, we will give 1 L of IV fluid and resume losartan, continue to hold hydrochlorothiazide. Potassium is 3.3, electrolyte replacement is in place. Hematology is unremarkable. Patient has put out 2.3 L of urine output and positive 3.1 L balance. We will continue to follow CK tomorrow, if trending down significantly, we can plan to dc him home. REVIEW OF SYSTEMS: 12 point ROS reviewed with patient. Pertinent positives mentioned above. Otherwise negative. PHYSICAL EXAM: GENERAL: alert, weak, awake oriented x 1-2 HEENT: EOMI, Sclera non icteric, moist mucosa NECK: Supple, no JVD, trachea midline LUNGS: Clear breath sounds bilaterally. No wheezes HEART: Regular rate and rhythm. Normal S1 and S2, without murmurs ABD: Abdomen soft, nontender. Bowel sounds present EXT: No clubbing cyanosis or edema NEURO: Alert and oriented to person, follows commands Vital Signs (last 8hr) Date Time Temp Pulse Resp B/P (MAP) Pulse Ox O2 Delivery O2 Flow Rate FiO2 07/12/24 07:00 97.9 77 20 174/77 93 Room Air 07/12/24 06:37 79 18 07/12/24 06:37 79 20 N/A Room Air 21 07/12/24 06:15 153/88 07/12/24 06:00 152/85 07/12/24 05:45 168/80 07/12/24 04:55 98.2 71 18 180/82 95 Room Air 07/12/24 00:49 98.2 76 18 158/75 97 Room Air LABS: Hematology Labs: Test 07/12/24 03:36 Range/Units White Blood Count 8.1 4.8-10.8 K/uL Red Blood Count 3.86 L 4.50-6.20 MIL/uL Hemoglobin 11.2 L 14.0-18.0 g/dL Hematocrit 33.0 L 42-54 % Mean Corpuscular Volume 85.5 79-99 fL Mean Corpuscular Hemoglobin 29.0 27.0-33.0 pg Mean Corpuscular Hemoglobin Concent 33.9 32.0-36.0 g/dL Red Cell Distribution Width 13.1 11.0-15.5 % Platelet Count 220 130-400 K/uL Mean Platelet Volume 9.9 7.5-10.5 fL Immature Granulocyte % (Auto) 0.4 0-1 % Neutrophils (%) (Auto) 67.3 40.0-77.0 % Lymphocytes (%) (Auto) 21.0 21.0-51.0 % Monocytes (%) (Auto) 9.6 3.0-13.0 % Eosinophils (%) (Auto) 1.2 0.0-8.0 % Basophils (%) (Auto) 0.5 0.0-5.0 % Neutrophils # (Auto) 5.4 1.8-7.7 K/uL Lymphocytes # (Auto) 1.7 1.0-4.8 K/uL Monocytes # (Auto) 0.8 0.1-1.0 K/uL Eosinophils # (Auto) 0.10 0.00-0.70 K/uL Basophils # (Auto) 0.04 0.00-0.20 K/uL Absolute Immature Granulocyte (auto 0.03 0-1 K/uL Nucleated Red Blood Cells 0.0 0.0-0.19 % Chemistry Labs: Test 07/12/24 05:55 07/12/24 03:36 07/11/24 03:52 07/10/24 09:32 Range/Units Whole Blood Glucose 108 70-110 MG/DL Sodium Level 144 136-145 mmol/L Potassium Level 3.3 L 3.5-5.1 mmol/L Chloride Level 108 101-111 mmol/L Carbon Dioxide Level 25 21-32 mmol/L Blood Urea Nitrogen 10 7-18 mg/dL Creatinine 1.2 0.5-1.3 mg/dL Glomerular Filtration Rate Calc 59 >90 mL/min Random Glucose 107 H 70-105 mg/dL Total Calcium 8.6 8.5-10.1 mg/dL Total Creatine Kinase 999 *H 21-232 U/L Magnesium Level 1.80 1.80-2.40 mg/dL Thyroid Stimulating Hormone (TSH) 1.25 0.36-3.74 uIU/mL DIAGNOSTICS / RADIOLOGY RESULTS: [ ] PLAN Admit to medical floor with continuous telemetry monitoring. -Troponin levels and EKG series. -Carotid and 2D echo. -PRN medications for pain management, N/V, constipation, hypertension. -Oxygen supplement as needed to maintain oxygen levels equal to or greater than 92% -Nitroglycerin sublingual as needed chest pain -Atorvastatin 40 mg PO daily. -Blood pressure checks every 4 hours and as needed. -Reconcile home medications once available. -Glucometer checks before meals and at bedtime with insulin regular sliding scale. -Monitor renal and liver function, monitor electrolytes and replace PRN. -AM labs: CBC, BMP, mag, phos, A1C, TSH. -PT/OT -DVT and GI prophylaxis. NEURO: Minimize central acting medications as possible. Maintain fall precautions, adequate lighting during the day PULMONARY: Supplemental 02 as needed. Maintain aspiration precautions at all times CARDIOVASCULAR: Follow hemodynamics. Vital signs per facility protocol GI & NUTRITION: Continue with nutritional support. Continue stool softeners and laxatives as needed. KIDNEYS & ELECTROLYTES: Strict monitoring of intake, output and overall fluid balance. Avoid nephrotoxic medications to the extent possible. Medications to be dosed according to renal function. Monitor electrolytes and replace as needed ENDOCRINE: Maintain blood glucose between 100-180 at all times. Hypoglycemia protocol in place INFECTIOUS DISEASE: Trend temperature, WBC and procalcitonin level Follow cultures, deescalate antibiotics as soon as possible. Panculture if new onset fever ONCOLOGY/HEMATOLOGY/COAGULATION: Monitor for s/s of bleeding Monitor hemoglobin, coagulation studies as needed SKIN: Pressure ulcer prevention per facility protocol Specialty mattress ORTHO/REHAB: Continue PT/OT Prophylaxis: Continue GI and DVT prophylaxis Code Status: Full Resuscitation Disposition: ASHLEY RAND CNP Jul 12, 2024 08:27
[2024-07-12] MEDS: LoSARTan 50 MG TABLET PO SCH (09:21)
[2024-07-12] MEDS ORDERED: ALBUTEROL 0.083% 2.5 MG/3 ML INH IH PRN (12:30)
--- NOTE | 2024-07-12 14:30 | NUR ---
REPORT HAS BEEN GIVEN TO RAMÓN ON 4TH FLOOR AND WILL TAKE PT UP BY W/C.
--- NOTE | 2024-07-12 16:30 | NUR ---
bloood pressure elevated prn med administered by keanu mcnulty
--- NOTE | 2024-07-12 18:14 | NUR ---
patients blood pressure elevated post prn antihypertensive meds. notified.
--- NOTE | 2024-07-12 19:10 | NUR ---
ordered new anti hypertensive medication.
[2024-07-12] MEDS: amLODIPine 5 MG TAB PO ONE (20:06)
[2024-07-13] VITALS (10 sets, daily range): BP systolic 126–188; BP diastolic 64–92; PULSE 66–78; RESP 17–20; TEMP 97.7–98.6; O2SAT 95–96
[2024-07-13 04:38] LABS: BASOPHILS # (AUTO) 0.05 K/uL (0.00-0.20); BASOPHILS % (AUTO) 0.6 % (0.0-5.0); EOSINOPHILS # (AUTO) 0.21 K/uL (0.00-0.70); EOSINOPHILS % (AUTO) 2.6 % (0.0-8.0); HEMATOCRIT 32.7 % (42-54); IMMATURE GRANULOCYTE ABSOLUTE 0.03 K/uL (0-1); LYMPHOCYTES # (AUTO) 1.9 K/uL (1.0-4.8); LYMPHOCYTES % (AUTO) 23.9 % (21.0-51.0); MEAN CORPUSCULAR HEMOGLOBIN 29.6 pg (27.0-33.0); MEAN CORPUSCULAR HGB CONC 34.6 g/dL (32.0-36.0); MEAN CORPUSCULAR VOLUME 85.6 fL (79-99); MONOCYTES # (AUTO) 0.8 K/uL (0.1-1.0); MONOCYTES % (AUTO) 10.2 % (3.0-13.0); NEUTROPHILS % (AUTO) 62.3 % (40.0-77.0); PLATELET COUNT (AUTO) 226 K/uL (130-400); RED BLOOD CELL COUNT(AUTO) 3.82 MIL/uL (4.50-6.20); RED CELL DISTRIBUTION WIDTH 13.1 % (11.0-15.5); WHITE BLOOD COUNT (AUTO) 8.1 K/uL (4.8-10.8)
[2024-07-13 05:35] LABS: ALBUMIN 3.2 g/dL (3.5-5.0); BILIRUBIN,TOTAL 1.2 mg/dL (0.2-1.0); CREATININE 1.2 mg/dL (0.5-1.3); POTASSIUM 3.5 mmol/L (3.5-5.1); TOTAL PROTEIN, SERUM 6.3 g/dL (6.0-8.3)
--- NOTE | 2024-07-13 07:50 | PN ---
[facility] PROGRESS NOTE Date Patient Seen: Jul 13, 2024 Time of Visit: 07:45 Supervising Physician: [Dr. Doll] Primary Care Physician: Dr. Kishor Weldon Outpatient Specialists: Inpatient Consults: NA PROBLEM LIST: Post mechanical fall, POA Rhabdomyolysis- recurrent- likely iatrogenic from hydrochlorothiazide Acute renal failure secondary to ATN from dehydration Hypovolemia Electrolyte imbalance Primary hypertension Moderate right carotid artery stenosis, findings consistent with a 50-70% stenosis Leukocytosis without left band shift History dementia, hyperlipidemia, hypertension INTERVAL HISTORY: Patient came to the hospital with status post mechanical fall backward hitting his bottom without any injury. Patient has been very weak reporting pain in the back. At this time, patient is awake alert oriented x1-2, no acute event overnight. Vital signs blood pressure 150/72 heart rate is 66. Respiratory rate 16. Her T-max 98.8. He is breathing on room air with saturation oxygen 93%. No lab this morning, we will obtain CBC BMP CK TSH. Patient had imaging studies with carotids also on moderate plaque in the right carotid artery 50 to 70%. Continue with IV fluids. We will obtain physical therapy to evaluate and case management for placement. 07/11 patient is lying in bed not in acute distress, no acute event overnight. Blood pressure is 160/83 heart rate is 72. Respiratory rate is 18. T-max 98.4. He remains on room air saturation oxygen 96%. We will repeat is CK this morning, eight went up to 950 from 500 although his kidney function has been normalized at 1.3 down from 1.5. We will give him extra dose of fluid and repeat lab in the afternoon. Patient pending discharge when rhabdomyolysis has improved. 07/12 patient is lying down in bed not in acute distress having his breakfast, no acute events overnight. Blood pressure this morning was 170/77, losartan/ hydrochlorothiazide has been held yesterday secondary to persistent rhabdomyolysis. His CK this morning remains high at 990, we will give 1 L of IV fluid and resume losartan, continue to hold hydrochlorothiazide. Potassium is 3.3, electrolyte replacement is in place. Hematology is unremarkable. Patient has put out 2.3 L of urine output and positive 3.1 L balance. We will continue to follow CK tomorrow, if trending down significantly, we can plan to dc him home. 07/13 patient's blood pressure was elevated overnight at 194/87, started amlodipine 5 mg. He has been on IV fluids with NS at 150 ml/hr for rhabdo. CK continues to trend upward today at 1312. He had 2500 mL of urine output overnight with a net fluid balance of -1780. Blood pressure is improved to 148/68, continues on antihypertensives. Hydrochlorothiazide has been discontinued. Will DC statin and repeat troponin. Patient may DC once CK is improved if no new findings. REVIEW OF SYSTEMS: 12 point ROS reviewed with patient. Pertinent positives mentioned above. Otherwise negative. PHYSICAL EXAM: GENERAL: alert, weak, awake oriented x 1-2 HEENT: EOMI, Sclera non icteric, moist mucosa NECK: Supple, no JVD, trachea midline LUNGS: Clear breath sounds bilaterally. No wheezes HEART: Regular rate and rhythm. Normal S1 and S2, without murmurs ABD: Abdomen soft, nontender. Bowel sounds present EXT: No clubbing cyanosis or edema NEURO: Alert and oriented to person, follows commands Vital Signs (last 8hr) Date Time Temp Pulse Resp B/P (MAP) Pulse Ox O2 Delivery O2 Flow Rate FiO2 07/13/24 04:11 78 148/68 07/13/24 03:20 98.4 68 20 169/77 97 Room Air 07/13/24 00:00 97.7 77 20 167/79 95 Room Air LABS: Hematology Labs: Test 07/13/24 04:17 Range/Units White Blood Count 8.1 4.8-10.8 K/uL Red Blood Count 3.82 L 4.50-6.20 MIL/uL Hemoglobin 11.3 L 14.0-18.0 g/dL Hematocrit 32.7 L 42-54 % Mean Corpuscular Volume 85.6 79-99 fL Mean Corpuscular Hemoglobin 29.6 27.0-33.0 pg Mean Corpuscular Hemoglobin Concent 34.6 32.0-36.0 g/dL Red Cell Distribution Width 13.1 11.0-15.5 % Platelet Count 226 130-400 K/uL Mean Platelet Volume 9.7 7.5-10.5 fL Immature Granulocyte % (Auto) 0.4 0-1 % Neutrophils (%) (Auto) 62.3 40.0-77.0 % Lymphocytes (%) (Auto) 23.9 21.0-51.0 % Monocytes (%) (Auto) 10.2 3.0-13.0 % Eosinophils (%) (Auto) 2.6 0.0-8.0 % Basophils (%) (Auto) 0.6 0.0-5.0 % Neutrophils # (Auto) 5.0 1.8-7.7 K/uL Lymphocytes # (Auto) 1.9 1.0-4.8 K/uL Monocytes # (Auto) 0.8 0.1-1.0 K/uL Eosinophils # (Auto) 0.21 0.00-0.70 K/uL Basophils # (Auto) 0.05 0.00-0.20 K/uL Absolute Immature Granulocyte (auto 0.03 0-1 K/uL Nucleated Red Blood Cells 0.0 0.0-0.19 % Chemistry Labs: Test 07/13/24 05:13 07/13/24 04:17 Range/Units Whole Blood Glucose 92 70-110 MG/DL Sodium Level 140 136-145 mmol/L Potassium Level 3.5 3.5-5.1 mmol/L Chloride Level 108 101-111 mmol/L Carbon Dioxide Level 20 L 21-32 mmol/L Blood Urea Nitrogen 10 7-18 mg/dL Creatinine 1.2 0.5-1.3 mg/dL Glomerular Filtration Rate Calc 59 >90 mL/min Random Glucose 90 70-105 mg/dL Total Calcium 8.3 L 8.5-10.1 mg/dL Total Bilirubin 1.2 H 0.2-1.0 mg/dL Aspartate Amino Transf (AST/SGOT) 56 H 10-37 U/L Alanine Aminotransferase (ALT/SGPT) 38 12-78 U/L Alkaline Phosphatase 37 L 50-136 U/L Total Creatine Kinase 1312 #*H 21-232 U/L Total Protein 6.3 6.0-8.3 g/dL Albumin 3.2 L 3.5-5.0 g/dL DIAGNOSTICS / RADIOLOGY RESULTS: [Reviewed] PLAN NEURO: Minimize central acting medications as possible. Maintain fall precautions, adequate lighting during the day PULMONARY: Supplemental 02 as needed. Maintain aspiration precautions at all times CARDIOVASCULAR: Follow hemodynamics. Vital signs per facility protocol GI & NUTRITION: Continue with nutritional support. Continue stool softeners and laxatives as needed. KIDNEYS & ELECTROLYTES: Strict monitoring of intake, output and overall fluid balance. Avoid nephrotoxic medications to the extent possible. Medications to be dosed according to renal function. Monitor electrolytes and replace as needed ENDOCRINE: Maintain blood glucose between 100-180 at all times. Hypoglycemia protocol in place INFECTIOUS DISEASE: Trend temperature, WBC and procalcitonin level Follow cultures, deescalate antibiotics as soon as possible. Panculture if new onset fever ONCOLOGY/HEMATOLOGY/COAGULATION: Monitor for s/s of bleeding Monitor hemoglobin, coagulation studies as needed SKIN: Pressure ulcer prevention per facility protocol Specialty mattress ORTHO/REHAB: Continue PT/OT Prophylaxis: Continue GI and DVT prophylaxis Code Status: Full Resuscitation Disposition: TBSCOTT LOTT Jul 13, 2024 07:50
--- NOTE | 2024-07-13 09:15 | EKG ---
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 : 1940 Requested By: SALENA DURAND Order Number: [id number] Reading MD: Lasha Milian Measurements Intervals [place] Rate: 70 P: -15 OR: 140 QRS: 38 QRSD: 90 T: 79 QT: 428 QTc: 462 Interpretive Statements Normal sinus rhythm with sinus arrhythmia Minimal voltage criteria for LVH, may be normal variant Nonspecific T wave abnormality Prolonged QT Compared to ECG 07/09/2024 09:38:17 Left ventricular hypertrophy now present Prolonged QT interval now present T-wave abnormality still present Electronically Signed On 07-13-2024 20:02:34 STAFF TOXICOLOGIST by Lasha iMlian Please click the below link to view image of tracing.
[2024-07-13] MEDS: LACTATED RINGERS 1000ML 1,000 ML IV SCH (12:00)
[2024-07-14] VITALS: BP_SYST 147; BP_SYST 155; BP_SYST 168; BP_DIAS 72; BP_DIAS 81; BP_DIAS 90; PULSE 74; RESP 20; TEMP 98.2
--- NOTE | 2024-07-14 02:16 | NUR ---
nursing pm note patient alert and oriented times 3. plan of care discussed with him and he verbalized understanding. patient's iv infiltrated. KATERYNA Stephens, inputted a 20 gauge on the right wrist. The patient has slept most of then night. he urinates on the urinal. he has no pain. call light within reach, bed alarm on, 2 side rails up. will continue to monitor patient.
[2024-07-14 03:58] VITALS: BP 159/78; PULSE 71; RESP 20; TEMP 97.8
[2024-07-14 08:00] VITALS: BP 172/77; PULSE 76; RESP 16; TEMP 98.7
[2024-07-14 08:10] VITALS: O2SAT 93
--- NOTE | 2024-07-14 08:32 | NUR ---
HTN Patient's bp 172/77. PRN 10mg IV hydralazine administered for primary nurse Mariola BRANDT per unit policy.
[2024-07-14 12:00] VITALS: BP 166/72; PULSE 76; RESP 16; TEMP 98.6
[2024-07-14] MEDS: amLODIPine 5 MG TAB PO SCH (14:56)
--- NOTE | 2024-07-14 15:19 | DS ---
[facility] DISCHARGE SUMMARY Date Patient Seen: Jul 14, 2024 Time of Visit: 15:19 Supervising Physician: Dr. Coreas Primary Care Physician: Dr. Kishor Weldon Outpatient Specialists: Inpatient Consults: NA HOSPITAL COURSE: HPI (per admitting provider) Mr. Quintero is a 84-year-old male with history of HTN, dyslipidemia, mild dementia who presented to the ED for evaluation of a fall injury. According to the , the patient banged into a door had a mechanical fall backwards to his bottom. He felt very weak afterwards and was unable to get up. He possibly hit his head. Negative loss of consciousness. No confusion outside of baseline dementia. Patient reported some right lower back and flank pain. No vomiting. No headache. He has been in his normal state of health otherwise. The reported that he has been having syncopal episodes for the last five years and has been worked up as an outpatient. She does not think he had one today leading to the fall. ED provider requested the patient be admitted with the diagnosis of hypertension, weakness, JAMES, dehydration, and elevated CK. The patient's breathing was even, and unlabored. Patient appeared comfortable and in no distress. No family at bedside. The patient reported that he does not really know how the fall happened or what caused the fall. He reports that his could help more with that information. The patient was informed of labs, dignostic and plan of care. The patient was treated for the following problems: Patient's creatinine kinase levels have continued to decline following the d iscontinuation of his high-intensity statin therapy. Patient is being discharged home with instructions to hold Lipitor until he follows with PCP, as well patient is being informed of the need for proper hydration. Patient advised to follow up with PCP in 1-2 weeks. ACTIVE PROBLEM LIST FOR THE HOSPITALIZATION: Post mechanical fall, POA Rhabdomyolysis- recurrent- likely iatrogenic from hydrochlorothiazide Acute renal failure secondary to ATN from dehydration Hypovolemia Electrolyte imbalance Primary hypertension Moderate right carotid artery stenosis, findings consistent with a 50-70% stenosis Leukocytosis without left band shift History dementia, hyperlipidemia, hypertension CHRONIC PROBLEMS: continue previous management per PCP unless otherwise indicated OIL BAY TECHNICIAN FINDINGS/RECOMMENDATIONS: [ ] PROCEDURES: as mentioned above DISCHARGE MEDICATIONS: Pt hemodynamically stable and afebrile at time of discharge. PCP notified of patients admission, hospital course and discharge. PHYSICAL EXAM: GENERAL: alert, weak, awake oriented x 1-2 HEENT: EOMI, Sclera non icteric, moist mucosa NECK: Supple, no JVD, trachea midline LUNGS: Clear breath sounds bilaterally. No wheezes HEART: Regular rate and rhythm. Normal S1 and S2, without murmurs ABD: Abdomen soft, nontender. Bowel sounds present EXT: No clubbing cyanosis or edema NEURO: Alert and oriented to person, follows commands FOLLOW-UP: Follow-up with PCP in 2-3 days RECOMMENDATIONS: See Discharge Instructions This case was seen and discussed with my supervising physician. More than 30 minutes spent on discharge process, including evaluation of the patient, discussion with nursing staff, medication reconciliation and follow-up appointments JOSE JUAN OTREGA Jul 14, 2024 15:19
[2024-07-14 16:00] VITALS: BP_SYST 107; BP_SYST 160; BP_SYST 167; BP_DIAS 67; BP_DIAS 77; BP_DIAS 78; PULSE 76; RESP 20; TEMP 98.7
--- NOTE | 2024-07-14 16:34 | NUR ---
DISCHARGE SPOKE TO JOSE JUAN QUINONES REGARDING DISCHARGE. NOTIFIED SHANNON OF PATIENTS ELEVATED CK AND BLOOD PRESSURES. SHANNON SPOKE TO MD LUZ MD COMFORTABLE SENDING PT HOME. ORDERS FOR PT TO FOLLOW UP WITH PCP IN ONE WEEK
== END 2024-07-14 18:00 | disposition home or self-care (01) | DRG 557 ==
LOC: EDH 09:15 → EDHIP 13:22 → INTOOBSV 13:22 → OBSVTOIN 13:22 → 2AH 07-10 03:59 → 4CH 07-12 15:15
PROVIDERS: ADMIT Internal Medicine Pulmonary Disease; ATTEND Internal Medicine Pulmonary Disease
DX: M62.82 Rhabdomyolysis (principal); N17.0 Acute kidney failure with tubular necrosis; E86.0 Dehydration; Z20.822 Contact with and (suspected) exposure to COVID-19; E86.1 Hypovolemia; I65.21 Occlusion and stenosis of right carotid artery; F03.A0 Unspecified dementia, mild, without behavioral disturbance, psychotic disturbance, mood disturbance, and anxiety; T50.2X5A Adverse effect of carbonic-anhydrase inhibitors, benzothiadiazides and other diuretics, initial encounter; E78.00 Pure hypercholesterolemia, unspecified; D72.829 Elevated white blood cell count, unspecified; I10 Essential (primary) hypertension; K59.00 Constipation, unspecified; K57.30 Diverticulosis of large intestine without perforation or abscess without bleeding; Y92.89 Other specified places as the place of occurrence of the external cause; Z88.0 Allergy status to penicillin; Z79.899 Other long term (current) drug therapy
CPT/HCPCS: 36415; 70450; 71045; 72125; 74176; 80048; 80053; 80076; 81003; 82550; 82948; 83690; 83735; 83880; 84443; 84484; 85025; 85610; 87635; 87804; 93005; 93306; 93356; 93880; 94640; 94664; 96365; 99285; G0378; J0360; J2405; J3475; J7030; J7040

== ENCOUNTER → 2024-09-15 | Outpatient (CLI) | payer OTHER ==
[~2024-09-15] MED LIST changes: -ATOR40TA71 PO; +IOHEXOL 350 MG/ML 100ML INFUS..BTL IV ONE
--- NOTE | 2024-09-15 09:51 | HMCIMG ---
CT CARDIAC ANGIO W/CONT. CCTA HISTORY: Syncope COMPARISON: None TECHNIQUE: Multiple sequential axial images of the chest were obtained along with the CT angiogram of the chest study. Patient was given 100 cc of Omnipaque through intravenous route. FINDINGS: There is no evidence of pulmonary nodule or parenchymal disease. There are interstitial fibrosis. No pleural effusion or pericardial effusion is seen. There is no evidence of pneumothorax. There are normal size mediastinal and hilar lymph nodes. The heart is not enlarged. Degenerative changes of the thoracolumbar spine are present. IMPRESSION: 1. No evidence of pulmonary nodule or effusion is seen. Please see CT angiogram report of coronary arteries.
--- NOTE | 2024-09-20 18:06 | CARDIOLOGY ---
RAD REPORT: CORNARY CT ANGIO RADIOLOGY REPORT: CORONARY CT ANGIOGRAPHY DATE: Sep 20, 2024 QUALITY: Excellent CLINICAL HISTORY AND INDICATION: [syncope ] TECHNIQUE: After obtaining a preliminary dental receptionist image, contrast imaging performed on an Aquillon [id number] scanner. A dedicated, limited window, coronary imaging protocol was used, with single breath-hold, retrospective ECG gating, and automated arrhythmia rejection. 100 cc of low osmolar contrast agent: Omnipaque 350 was delivered via a 18-gauge IV catheter in the right antecubital fossa, using a power injector and followed by 60 cc of normal saline bolus as a chaser. Collimated images were reformatted at 0.5 mm intervals, and sent to an offline independent workstation for interpretation, using 3D anatomic reconstructions: Curved multiplanar reconstructions, maximum intensity projections, and multiplanar imaging. No metoprolol was administered prior to scanning due to low baseline heart rate. 0.8 mg SL nitroglycerin was given. CORONARY ARTERY DESCRIPTIONS: The coronary arteries arise in normal position. Left main coronary artery: Normal caliber vessel that bifurcates into the LAD and LCx. No stenosis. Left anterior descending coronary artery: Normal caliber vessel and gives rise to diagonal and septal branches. There is mixed calcified and noncalcified plaque in the proximal LAD with 30-40% stenosis. Left circumflex coronary artery: Normal caliber, nondominant and gives rise to two OM branches. There is mixed calcified and noncalcified plaque in the distal LCx with 70% stenosis. Right coronary artery: Large, dominant vessel giving rise to the PL and PDA bran ches. There is mixed calcified and noncalcified plaque in the mid RCA with 90% stenosis. CAD-RADs: 4A, severe stenosis. Recommend left heart catheterization. Thoracic Aorta: Normal diameter. Olivia Patel MD Cardiovascular Disease [facility] OLIVIA PATEL MD Sep 20, 2024 18:06
== END | disposition home or self-care (01) ==
LOC: RAH 07:20
PROVIDERS: ATTEND Student in an Organized Health Care Education/Training Program
DX: J84.89 Other specified interstitial pulmonary diseases (principal); M47.815 Spondylosis without myelopathy or radiculopathy, thoracolumbar region; R55 Syncope and collapse
CPT/HCPCS: 75574; Q9967